=== PATIENT | female | born 1990 | race Caucasian/White ===

== ENCOUNTER 2022-03-28 18:15 | Emergency (ER) | payer BC ==
[~2022-03-28] VITALS: Ht 149.9 cm; Wt 113.4 kg
[2022-03-28 18:21] VITALS: BP 163/103
--- NOTE | 2022-03-28 19:15 | NUR ---
PT STATED "I JUST WANNA LEAVE. CAN I LEAVE?" PT INFORMED THAT IF SHE WISHES TO LEAVE THAT IS HER CHOICE. ATTEMPTED TO GET PT TO BE SEEN BUT PT ADAMANT ABOUT LEAVING. PATIENT LEFT WITHOUT BEING SEEN BY DR. DOBSON. NO FURTHER CARE PROVIDED FOR PATIENT.
== END 2022-03-28 19:15 | disposition left against medical advice (07) ==
LOC: MED 18:15
DX: R42 Dizziness and giddiness (principal); Z53.21 Procedure and treatment not carried out due to patient leaving prior to being seen by health care provider

== ENCOUNTER 2022-04-28 12:52 | Emergency (ER) | payer BC ==
[~2022-04-28] VITALS: Ht 149.9 cm; Wt 106.6 kg
[2022-04-28 13:09] VITALS: BP 136/88
--- NOTE | 2022-04-28 13:20 | NUR ---
REFERRED FROM [facility] C/O Q TIP COTTON STUCK IN RIGHT EAR 1 HOUR AGO.PMH: HTN, BRAIN TUMOR, SCHIZOPHRENIA.
[2022-04-28] MEDS ORDERED: IBUP-2213 PO (14:00)
--- NOTE | 2022-04-28 14:20 | NUR ---
CALLED [facility] STAFF AT [facility] FOR PT'S DISCHARGE. BRIE CALLED TOM FOR PT.
[2022-04-28 14:35] VITALS: BP 136/88
--- NOTE | 2022-04-28 14:37 | NUR ---
PICKED UP BY TOM SHAH [id number] AT 12.37 PM
--- NOTE | 2022-04-28 15:35 | NUR ---
Patient discharged with v/s stable. Written and verbal after care instructions given and explained. Patient verbalized understanding. Ambulatory with steady gait. All questions addressed prior to discharge. Advised to follow up with PMD.
== END 2022-04-28 14:35 | disposition home or self-care (01) ==
LOC: MED 12:52
DX: H61.23 Impacted cerumen, bilateral (principal); I10 Essential (primary) hypertension; Z79.899 Other long term (current) drug therapy
CPT/HCPCS: 99282

== ENCOUNTER 2022-07-12 16:47 | Emergency (ER) | payer BC ==
[~2022-07-12] VITALS: Ht 149.9 cm; Wt 99.8 kg
[~2022-07-12 16:47] MED LIST: IBUP-2213 PO
[2022-07-12 16:56] VITALS: BP 140/80
[2022-07-12 18:15] LABS: BASOPHILS # (AUTO) 0.1 K/uL (0.00-0.22); BASOPHILS % (AUTO) 1.2 % (0.0-2.0); EOSINOPHILS # (AUTO) 0.1 K/uL (0-0.4); EOSINOPHILS % (AUTO) 1.1 % (0.0-4.0); HEMATOCRIT 41.4 % (36-48); HEMOGLOBIN 14.4 g/dL (12.0-16.0); LYMPHOCYTES # (AUTO) 1.6 K/uL (2.5-16.5); LYMPHOCYTES % (AUTO) 17.8 % (20.5-51.1); MEAN CORPUSCULAR HEMOGLOBIN 29 pg (27-31); MEAN CORPUSCULAR HGB CONC 35 g/dL (33-37); MEAN CORPUSCULAR VOLUME 82.9 fL (80-94); MONOCYTES # (AUTO) 0.5 K/uL (0.8-1.0); MONOCYTES % (AUTO) 5.8 % (1.7-9.3); NEUTROPHILS # (AUTO) 6.6 K/uL (1.8-7.7); NEUTROPHILS % (AUTO) 74.1 % (42.2-75.2); PLATELET COUNT (AUTO) 298 K/uL (140-450); RED CELL DISTRIBUTION WIDTH 13.6 % (11.6-13.7); WHITE BLOOD COUNT (AUTO) 8.9 K/uL (4.8-10.8)
[2022-07-12 18:30] LABS: ANION GAP 13.4 (8-16); CARBON DIOXIDE 28.5 mmol/L (21-32); CREATININE 0.8 mg/dL (0.6-1.3)
[2022-07-12 18:36] LABS: POTASSIUM 2.9 mmol/L (3.5-5.1)
[2022-07-12] MEDS ORDERED: POTA8TAB19 PO (18:39)
[2022-07-12] MEDS ORDERED: SODIUM PHOS / POTASSIUM PHOS 1 PKT PDR PO SCH (18:40)
--- NOTE | 2022-07-12 19:57 | NUR ---
Called pt 2x in lobby. No response
[2022-07-12 21:01] VITALS: BP 128/80
--- NOTE | 2022-07-12 21:01 | NUR ---
Patient discharged with v/s stable. Written and verbal after care instructions given and explained. Patient alert, oriented and verbalized understanding of instructions. Ambulatory with steady gait. All questions addressed prior to discharge. ID band removed. Patient advised to follow up with PMD. Rx of Potassium Chloride given. Patient educated on indication of medication including possible reaction and side effects. Opportunity to ask questions provided and answered.
== END 2022-07-12 21:01 | disposition home or self-care (01) ==
LOC: MED 16:47
DX: R42 Dizziness and giddiness (principal); I10 Essential (primary) hypertension; Z79.899 Other long term (current) drug therapy; Z79.1 Long term (current) use of non-steroidal anti-inflammatories (NSAID)
CPT/HCPCS: 36415; 80048; 84703; 85025; 99283